=== PATIENT | male | born 1970 | race Caucasian/White ===

== ENCOUNTER 2017-06-28 19:23 | Emergency (ER) | payer OTHER ==
[~2017-06-28] VITALS: Ht 177.8 cm; Wt 113.4 kg
[~2017-06-28 19:23] MED LIST: ALPRAZOLAM2 M1 PO; ATIVAN1 MG PO; BACTRIM DS TAB1 EACH PO; CELEXA40 MG; CHANTIX1 MG PO; COREG CR20 MG; COREG PO; LANOXIN 0.120.125 M2 PG; LISINOPRIL10 MG PO; NORCO 5-325 TA1 EACH PO; PRINIVIL5 MG PO; TRILEPTAL150 MG
[2017-06-28 19:50] LABS: ABSOLUTE BASOPHILS 0.1 thou/uL (0.0-0.2); ABSOLUTE EOSINOPHILS 0.2 thou/uL (0.0-0.7); ABSOLUTE LYMPHOCYTES 2.3 thou/uL (0.8-5.3); ABSOLUTE MONOCYTES 0.5 thou/uL (0.0-1.2); ABSOLUTE NEUTROPHILS 5.9 thou/uL (1.6-8.1); EOSINOPHILS 2.3 %; HEMATOCRIT 38.8 % (42.0-52.0); HEMOGLOBIN 13.6 gm/dL (14.0-18.0); LYMPHOCYTES 25.8 %; MCH 32.5 pg (26.0-34.0); MCHC 35.1 g/dL (28.0-37.0); MCV 92.6 fL (80.0-100.0); MONOCYTES 5.8 %; MPV 6.7 fl. (7.2-11.1); NUCLEATED RBCS 0 /100WBC; PLATELET COUNT* 245 thou/uL (150-400); POLYS 65.1 %; RBC 4.19 mil/uL (4.50-6.00); RDW-CV 13.7 % (10.5-14.5); WBC 9.1 thou/uL (4.0-11.0)
[2017-06-28 19:58] LABS: CALCIUM 9.2 mg/dL (8.5-10.1); CREATININE 1.2 mg/dL (0.6-1.3); POTASSIUM 3.9 mmol/L (3.5-5.1)
[2017-06-28 20:02] LABS: ALBUMIN 4.3 g/dL (3.4-5.0); TOTAL BILIRUBIN 0.4 mg/dL (<0.1-1.0); TOTAL PROTEIN 7.2 g/dL (6.4-8.2)
[2017-06-28 20:54] LABS: AMP/METHAMP Negative (Negative); BARBITURATES Negative (Negative); BENZODIAZEPINES POSITIVE (Negative); COCAINE Negative (Negative); METHADONE Negative (Negative); OPIATES Negative (Negative); PCP Negative (Negative); THC Negative (Negative)
[2017-06-28] MEDS ORDERED: KEFLEX500 M1 PO (22:41)
[2017-06-28] MEDS ORDERED: HYDROCODONE-AP1 EAC6 PO (22:41)
[2017-06-28 22:51] VITALS: BP 144/80
--- NOTE | 2017-07-12 21:29 | NUR ---
EDIT FOR 06/28/17 AT 2128 IVF NORMAL SALINE STARTED AT 1956 STOPPED AT 2056 1000 MLS INFUSED. IVF NORMAL SALINE STARTED AT 2028 STOPPED AT 2128 1000 MLS INFUSED. IVPB CEFAZOLIN STARTED AT 2028 STOPPED AT 2058, NOT 2028 ORIGINALLY CHARTED. UNABLE TO EDIT THESE MEDICATIONS IN [facility].
== END 2017-06-28 22:51 | disposition home or self-care (01) ==
LOC: M.ERS 19:23
PROVIDERS: Emergency Medicine
DX: S41.112A Laceration without foreign body of left upper arm, initial encounter (principal); I10 Essential (primary) hypertension; I50.9 Heart failure, unspecified; F32.9 Major depressive disorder, single episode, unspecified; Z98.890 Other specified postprocedural states; Z88.8 Allergy status to other drugs, medicaments and biological substances

== ENCOUNTER 2019-10-30 21:19 | Emergency (ER) | payer OTHER ==
[~2019-10-30] VITALS: Ht 177.8 cm; Wt 108.9 kg
[~2019-10-30 21:19] MED LIST changes: +HYDROCODONE-AP1 EAC6 PO; +KEFLEX500 M1 PO
[2019-10-30] MEDS ORDERED: CARVEDILOL25 MG PO (21:31)
[2019-10-30] MEDS ORDERED: CYMBALTA60 MG PO (21:32)
[2019-10-30] MEDS ORDERED: TRILEPTAL300 MG PO (21:32)
[2019-10-30] MEDS ORDERED: LAMICTAL150 MG PO (21:32)
[2019-10-30] MEDS ORDERED: ZESTRIL5 MG PO (21:33)
[2019-10-30] MEDS ORDERED: SEROQUEL400 MG PO (21:33)
[2019-10-30] MEDS ORDERED: HYDROCODON-ACE1 EAC8 PO (22:16)
[2019-10-30] MEDS ORDERED: HYDROCODON-ACE1 EAC7 PO (22:19)
[2019-10-30 22:38] VITALS: BP 130/60
== END 2019-10-30 22:39 | disposition home or self-care (01) ==
LOC: M.ERS 21:19
DX: S93.491A Sprain of other ligament of right ankle, initial encounter (principal); I11.0 Hypertensive heart disease with heart failure; I50.9 Heart failure, unspecified; F32.9 Major depressive disorder, single episode, unspecified; Z96.659 Presence of unspecified artificial knee joint; Z95.0 Presence of cardiac pacemaker; X50.1XXA Overexertion from prolonged static or awkward postures, initial encounter; Y93.89 Activity, other specified; Y92.89 Other specified places as the place of occurrence of the external cause; Y99.8 Other external cause status